=== PATIENT | female | born 1945 | race Two or more races ===

== ENCOUNTER 2019-10-17 20:36 | Emergency (ER) | payer MEDICARE ==
[~2019-10-17] VITALS: Ht 152.4 cm; Wt 56.4 kg
--- NOTE | 2019-10-17 20:55 | NUR ---
xray at bedside
--- NOTE | 2019-10-17 20:57 | NUR ---
Patient complains of irregular heart beat after she discovered her blood pressure was elevated at home. Denies CP or SOB.
[2019-10-17 21:00] LABS: BASOPHILS # (AUTO) 0.1 X10'3 (0-0.2); BASOPHILS % (AUTO) 1.1 % (0-1); EOSINOPHILS # (AUTO) 0.4 X10'3 (0-0.9); EOSINOPHILS % (AUTO) 3.1 % (0-6); HEMATOCRIT 37.6 % (35.0-45.0); HEMOGLOBIN 11.8 g/dl (12.0-16.0); LYMPHOCYTES # (AUTO) 4.8 X10'3 (1.1-4.8); LYMPHOCYTES % (AUTO) 38.5 % (21-51); MEAN CORPUSCULAR HEMOGLOBIN 20.7 PG (27.0-31.0); MEAN CORPUSCULAR HGB CONC 31.4 g/dL (33.0-36.5); MEAN CORPUSCULAR VOLUME 66.1 FL (78-98); MEAN PLATELET VOLUME 8.2 FL (7.4-10.4); MONOCYTES # (AUTO) 1.2 X10'3 (0-0.9); MONOCYTES % (AUTO) 9.8 % (2-12); NEUTROPHILS # (AUTO) 5.9 X10'3 (1.8-7.7); NEUTROPHILS % (AUTO) 47.5 % (42-75); PLATELET COUNT 253 X10'3 (140-440); RED BLOOD COUNT 5.69 X10'6 (4.20-5.60); RED CELL DISTRIBUTION WIDTH 15.1 % (11.5-14.5); WHITE BLOOD COUNT 12.5 X10'3 (4.5-11.0)
[2019-10-17 21:16] LABS: ALANINE AMINOTRANSFERASE 36 U/L (12-78); ALBUMIN 4.1 G/DL (3.4-5.0); ALBUMIN/GLOBULIN RATIO 1.2 (1.1-1.5); ALKALINE PHOSPHATASE 60 IU/L (46-116); ANION GAP 5 (8-16); ASPARTATE AMINO TRANSFERASE 25 U/L (10-37); BILIRUBIN,TOTAL 0.7 MG/DL (0.1-1.0); BLOOD UREA NITROGEN 12 MG/DL (7-18); BUN/CREATININE RATIO 16.9 (6.6-38.0); CHLORIDE 97 MMOL/L (99-107); CREATININE 0.71 MG/DL (0.40-0.90); GLUCOSE 88 MG/DL (70-104); POTASSIUM 3.1 MMOL/L (3.5-5.1); SODIUM 133 MMOL/L (135-145); TOTAL CARBON DIOXIDE 30.9 MMOL/L (24-32); TOTAL PROTEIN 7.5 G/DL (6.4-8.2); eGFR 81 ML/MIN
[2019-10-17 22:07] LABS: PLATELET ESTIMATE NORMAL
[2019-10-17 22:08] LABS: MICROCYTOSIS 2+
[2019-10-17] MEDS ORDERED: hydrALAZINE 20mg/ml inj. IV ONE (22:10)
--- NOTE | 2019-10-17 22:22 | NUR ---
Patient up to the bathroom w/o problem.
[2019-10-17 23:45] VITALS: BP 174/79
== END 2019-10-17 23:51 | disposition home or self-care (01) ==
LOC: ER 20:37
DX: R00.2 Palpitations (principal); E78.00 Pure hypercholesterolemia, unspecified; I10 Essential (primary) hypertension; E11.9 Type 2 diabetes mellitus without complications
CPT/HCPCS: 36415; 71045; 80053; 84484; 85025; 93005; 96374; 99285; J0360

== ENCOUNTER 2022-08-06 08:49 | Emergency (ER) | payer BC, MEDICARE ==
[~2022-08-06] VITALS: Ht 149.9 cm; Wt 57.3 kg
[2022-08-06] MEDS ORDERED: normal saline 1000ML IV soln IVB ONE (09:50)
[2022-08-06] MEDS ORDERED: meclizine 12.5mg tablet PO ONE (09:55)
[2022-08-06] MEDS ORDERED: ondansetron/PF 4mg/2ml inj IV ONE (09:55)
[2022-08-06 10:12] LABS: BASOPHILS # (AUTO) 0.1 X10'3 (0-0.2); BASOPHILS % (AUTO) 0.9 % (0-1); EOSINOPHILS # (AUTO) 0.3 X10'3 (0-0.9); HEMATOCRIT 38.4 % (35.0-45.0); HEMOGLOBIN 12.1 g/dl (12.0-16.0); LYMPHOCYTES # (AUTO) 3.9 X10'3 (1.1-4.8); MEAN CORPUSCULAR HEMOGLOBIN 20.6 PG (27.0-31.0); MEAN CORPUSCULAR HGB CONC 31.4 g/dL (33.0-36.5); MEAN CORPUSCULAR VOLUME 65.8 FL (78-98); MEAN PLATELET VOLUME 8.3 FL (7.4-10.4); MONOCYTES # (AUTO) 1.1 X10'3 (0-0.9); MONOCYTES % (AUTO) 10.3 % (2-12); NEUTROPHILS # (AUTO) 5.4 X10'3 (1.8-7.7); NEUTROPHILS % (AUTO) 49.8 % (42-75); PLATELET COUNT 223 X10'3 (140-440); RED BLOOD COUNT 5.84 X10'6 (4.20-5.60); RED CELL DISTRIBUTION WIDTH 15.2 % (11.5-14.5); WHITE BLOOD COUNT 10.7 X10'3 (4.5-11.0)
[2022-08-06 10:34] LABS: ALANINE AMINOTRANSFERASE 23 U/L (12-78); ALBUMIN 3.8 G/DL (3.4-5.0); ALBUMIN/GLOBULIN RATIO 1.1 (1.1-1.5); ALKALINE PHOSPHATASE 63 IU/L (46-116); ANION GAP 6 (8-16); ASPARTATE AMINO TRANSFERASE 22 U/L (10-37); BILIRUBIN,TOTAL 0.4 MG/DL (0.1-1.0); BLOOD UREA NITROGEN 11 MG/DL (7-18); BUN/CREATININE RATIO 16.2 (6.6-38.0); CALCIUM 10.1 MG/DL (8.5-10.1); CHLORIDE 103 MMOL/L (99-107); CREATININE 0.68 MG/DL (0.40-0.90); ETHANOL < 0.010 GM/DL (0.0-0.010); GLUCOSE 186 MG/DL (70-104); POTASSIUM 3.7 MMOL/L (3.5-5.1); SODIUM 136 MMOL/L (135-145); TOTAL CARBON DIOXIDE 27.2 MMOL/L (24-32); TOTAL PROTEIN 7.4 G/DL (6.4-8.2); eGFR 84 ML/MIN
[2022-08-06 10:37] LABS: PLATELET ESTIMATE NORMAL
[2022-08-06 10:38] LABS: MICROCYTOSIS 2+
[2022-08-06 11:09] LABS: CLARITY,URINE SLIGHTLY CLOUDY (Clear); COLOR,URINE YELLOW (Yellow); GLUCOSE, URINE NEGATIVE (Neg); KETONES,URINE NEGATIVE (Neg); LEUKOCYTE ESTERASE ,URINE SMALL (Neg); NITRITES, URINE NEGATIVE (Neg); OCCULT BLOOD,URINE NEGATIVE (Neg); PH,URINE 6.5 (4.8-8.0); PROTEIN,URINE NEGATIVE (Neg); UROBILINOGEN,URINE 0.2 E.U/dL (0.2-1.0)
[2022-08-06 11:10] LABS: UA COLLECTION TYPE CLN CATCH MIDSTREAM
[2022-08-06 11:16] LABS: URINE AMPHETAMINE SCREEN NEGATIVE (Neg); URINE BARBITUATE SCREEN NEGATIVE (Neg); URINE BENZODIAZEPINES SCREEN NEGATIVE (Neg); URINE CANNABINOID SCREEN NEGATIVE (Neg); URINE COCAINE SCREEN NEGATIVE (Neg); URINE METHADONE SCREEN NEGATIVE (Neg); URINE OPIATE SCREEN POSITIVE (Neg); URINE PHENCYCLIDINE SCREEN NEGATIVE (Neg)
[2022-08-06 11:18] LABS: BACTERIA,URINE FEW /HPF (Neg); RBC,URINE 0-2 /HPF (0-2); SQUAMOUS EPITHELIAL CELL,UR FEW /LPF (FEW); WBC,URINE 0-4 /HPF (0-4)
[2022-08-06 11:19] LABS: MUCUS STRANDS NONE SEEN /LPF (Neg); TRANSITIONAL EPI CELLS,URINE FEW /HPF
[2022-08-06] MEDS ORDERED: ONDA4TAB12 PO (12:22)
[2022-08-06] MEDS ORDERED: MECL-159 PO (12:22)
[2022-08-06 12:35] VITALS: BP 168/63
== END 2022-08-06 12:38 | disposition home or self-care (01) ==
LOC: ER 08:49
DX: D32.9 Benign neoplasm of meninges, unspecified (principal); E78.00 Pure hypercholesterolemia, unspecified; Z86.73 Personal history of transient ischemic attack (TIA), and cerebral infarction without residual deficits
CPT/HCPCS: 36415; 70450; 71045; 80053; 80305; 80320; 81001; 84484; 85008; 85025; 87088; 93005; 96374; 99285; J2405; J7030; J8597

== ENCOUNTER 2022-08-16 11:07 | Emergency (ER) | payer BC ==
[~2022-08-16] VITALS: Ht 152.4 cm; Wt 57.3 kg
[~2022-08-16 11:07] MED LIST: MECL-159 PO; ONDA4TAB12 PO
--- NOTE | 2022-08-16 11:18 | NUR ---
DR. REEDER AT TRIAGE TO EVALUTAED PATIENT. STATES THIS IS NOT A STROKE ALERT. PATIENT TRIAGE COMPLETED AND PLACED IN LOBBY.
[2022-08-16] MEDS ORDERED: amLODIPine 5mg tablet PO ONE (14:20)
[2022-08-16] MEDS ORDERED: valacyclovir 500mg tablet PO STA (14:20)
[2022-08-16] MEDS ORDERED: HYDROchlorothiazide 25mg tablet PO ONE (14:20)
[2022-08-16] MEDS ORDERED: VALA100031 PO (14:20)
[2022-08-16] MEDS ORDERED: HYDR25TA4 PO (14:20)
[2022-08-16] MEDS ORDERED: methylPREDNISolone sod succ 125mg/2ml vial IV ONE (14:45)
[2022-08-16 15:19] LABS: BASOPHILS # (AUTO) 0.1 X10'3 (0-0.2); BASOPHILS % (AUTO) 0.9 % (0-1); EOSINOPHILS # (AUTO) 0.3 X10'3 (0-0.9); EOSINOPHILS % (AUTO) 2.7 % (0-6); HEMATOCRIT 39.4 % (35.0-45.0); HEMOGLOBIN 12.5 g/dl (12.0-16.0); LYMPHOCYTES # (AUTO) 4.4 X10'3 (1.1-4.8); LYMPHOCYTES % (AUTO) 38.7 % (21-51); MEAN CORPUSCULAR HEMOGLOBIN 20.5 PG (27.0-31.0); MEAN CORPUSCULAR HGB CONC 31.6 g/dL (33.0-36.5); MEAN CORPUSCULAR VOLUME 64.8 FL (78-98); MEAN PLATELET VOLUME 8.3 FL (7.4-10.4); MONOCYTES % (AUTO) 8.5 % (2-12); NEUTROPHILS # (AUTO) 5.6 X10'3 (1.8-7.7); NEUTROPHILS % (AUTO) 49.2 % (42-75); PLATELET COUNT 247 X10'3 (140-440); RED BLOOD COUNT 6.08 X10'6 (4.20-5.60); RED CELL DISTRIBUTION WIDTH 15.1 % (11.5-14.5); WHITE BLOOD COUNT 11.4 X10'3 (4.5-11.0)
[2022-08-16 15:33] LABS: APTT 27 SECONDS (22-32)
[2022-08-16 15:37] LABS: ALANINE AMINOTRANSFERASE 29 U/L (12-78); ALBUMIN 4.3 G/DL (3.4-5.0); ALBUMIN/GLOBULIN RATIO 1.2 (1.1-1.5); ALKALINE PHOSPHATASE 62 IU/L (46-116); ANION GAP 5 (8-16); ASPARTATE AMINO TRANSFERASE 27 U/L (10-37); BILIRUBIN,TOTAL 0.5 MG/DL (0.1-1.0); BLOOD UREA NITROGEN 17 MG/DL (7-18); BUN/CREATININE RATIO 28.8 (6.6-38.0); C-REACTIVE PROTEIN 0.07 MG/DL (0.0-0.5); CALCIUM 10.5 MG/DL (8.5-10.1); CHLORIDE 102 MMOL/L (99-107); CREATININE 0.59 MG/DL (0.40-0.90); GLUCOSE 94 MG/DL (70-104); SODIUM 137 MMOL/L (135-145); TOTAL CARBON DIOXIDE 29.7 MMOL/L (24-32); eGFR > 90 ML/MIN
[2022-08-16] MEDS ORDERED: BACI1PAC7 TOP (16:44)
[2022-08-16] MEDS ORDERED: PRED20TA PO (16:46)
[2022-08-16] MEDS ORDERED: diphenhydrAMINE 50 mg/ml inj IV ONE (16:50)
[2022-08-16] MEDS ORDERED: LORazepam 2 mg/ml vial IV ONE (16:50)
[2022-08-16 17:02] LABS: ELLIPTOCYTES FEW; HYPOCHROMASIA 1+; MICROCYTOSIS 2+; PLATELET ESTIMATE NORMAL
[2022-08-16 17:04] LABS: SCHISTOCYTES FEW
[2022-08-16] MEDS ORDERED: GADOTERATE MEGLUMINE 7.5 MMOL/15 ML VIAL IV ONE (18:40)
[2022-08-16 20:17] VITALS: BP 164/74
[2022-08-16] MEDS ORDERED: mineral oil/petrolatum ophthal oint EACHEYE STA (20:24)
== END 2022-08-16 20:35 | disposition home or self-care (01) ==
LOC: ER 11:08
DX: G51.0 Bell's palsy (principal); I10 Essential (primary) hypertension; D32.9 Benign neoplasm of meninges, unspecified; R20.0 Anesthesia of skin; E78.00 Pure hypercholesterolemia, unspecified; E11.9 Type 2 diabetes mellitus without complications
CPT/HCPCS: 36415; 70544; 70553; 80053; 85008; 85025; 85610; 85651; 85730; 86140; 93005; 96374; 96375; 99285; A9575; J2060; J2930

== ENCOUNTER 2024-02-09 12:54 | Emergency (ER) | payer BC, MEDICAID ==
[~2024-02-09 12:54] MED LIST changes: +BACI1PAC7 TOP; +DIAZ5TAB4 PO; +HYDR25TA4 PO; +IBUP-1985 PO; -MECL-159 PO; +MECL-302 PO; +ONDA-243 PO; -ONDA4TAB12 PO; +VALA100031 PO
== END 2024-02-09 15:34 | disposition left against medical advice (07) ==
LOC: ER 12:54
DX: M25.561 Pain in right knee (principal); Z53.21 Procedure and treatment not carried out due to patient leaving prior to being seen by health care provider